=== PATIENT | male | born 1975 | race Caucasian/White ===

== ENCOUNTER 2021-09-23 13:51 | Emergency (ER) | payer SELFPAY ==
[2021-09-23 14:26] LABS: #Basophils 0.1 thou/uL (0.0-0.2); #Eosinphils 0.2 thou/uL (0.0-0.7); #Lymphocytes 2.3 thou/uL (1.20-3.40); #Monocytes 0.6 thou/uL (0.11-0.59); #Neutrophils 3.7 thou/uL (1.40-6.50); %Basophils 0.8 % (0.0-1.0); %Eosinophils 2.9 % (0.0-10.0); %Monocytes 8.2 % (0.0-10.0); %Neutrophils 54.1 % (42.0-75.0); Hemoglobin 17.3 g/dL (14.0-18.0); Mean Corpuscular HGB CONC 33.6 g/dL (32.0-36.0); Mean Corpuscular Hemoglobin 29.4 pg (27.0-31.0); Mean Corpuscular Volume 87.4 fL (78.0-98.0); Mean Platelet Volume 7.3 fL (7.4-10.4); Platelet Count 254 thou/uL (130-400); RBC Distribution Width 12.7 % (11.5-14.5); Red Blood Cell (RBC) Count 5.89 mill/uL (4.70-6.10); White Blood Cell (WBC) Count 6.9 thou/uL (4.8-10.8)
[2021-09-23 14:47] LABS: ALT (SGPT) 51 U/L (8-55); AST (SGOT) 23 U/L (5-34); Albumin 4.5 g/dL (3.5-5.0); Alkaline Phosphatase 50 U/L (40-110); Anion Gap 13 mmol/L (10-20); BUN (Urea Nitrogen) 10 mg/dL (8.9-20.6); Bilirubin, Total 0.8 mg/dL (0.2-1.2); Calc. Creatinine Clearance 0 mL/min (70-130); Calcium 9.9 mg/dL (7.8-10.44); Carbon Dioxide 24 mmol/L (22-29); Chloride 103 mmol/L (98-107); Globulin 2.9 g/dL (2.4-3.5); Glucose 100 mg/dL (70-105); Lipase 34 U/L (8-78); Potassium 4.2 mmol/L (3.5-5.1); Protein, Total 7.4 g/dL (6.0-8.3); Sodium 136 mmol/L (136-145)
[2021-09-23 16:58] LABS: Bilirubin Negative (Negative); Blood, Urine Negative (Negative); Clarity Clear (Clear); Glucose, Urine (Dipstick) Normal (Negative); Ketone, Urine Trace mg/dL (Negative); Leukocyte Negative Leu/uL (Negative); Nitrite Negative (Negative); Protein, Urine (Dipstick) Negative (Neg-Trace); Specific Gravity, Urine 1.024 (1.002-1.036); Urobilinogen Normal mg/dL (Less than 2)
== END 2021-09-23 18:43 | disposition home or self-care (01) ==
LOC: ERS 13:51
DX: R07.89 Other chest pain (principal); R00.2 Palpitations; I10 Essential (primary) hypertension; G40.909 Epilepsy, unspecified, not intractable, without status epilepticus; E03.9 Hypothyroidism, unspecified; Z79.899 Other long term (current) drug therapy
CPT/HCPCS: 36415; 71045; 80053; 81003; 83690; 84443; 84484; 85025; 93005; 94760

== ENCOUNTER 2021-12-13 22:09 | Inpatient (IN) | payer OTHER, SELFPAY ==
[~2021-12-13 22:09] MED LIST: Heparin 10,000 UNITS/ 10 ML VIAL ONE
[2021-12-13 22:25] LABS: #Basophils 0.1 thou/uL (0.0-0.2); #Eosinphils 0.3 thou/uL (0.0-0.7); #Lymphocytes 4.4 thou/uL (1.20-3.40); #Monocytes 0.9 thou/uL (0.11-0.59); #Neutrophils 3.6 thou/uL (1.40-6.50); %Basophils 0.7 % (0.0-1.0); %Eosinophils 2.8 % (0.0-10.0); %Lymphocytes 47.5 % (21.0-51.0); %Monocytes 9.6 % (0.0-10.0); %Neutrophils 39.3 % (42.0-75.0); Hemoglobin 15.2 g/dL (14.0-18.0); Mean Corpuscular HGB CONC 33.1 g/dL (32.0-36.0); Mean Corpuscular Hemoglobin 29.7 pg (27.0-31.0); Mean Corpuscular Volume 89.9 fL (78.0-98.0); Mean Platelet Volume 6.9 fL (7.4-10.4); Platelet Count 261 thou/uL (130-400); RBC Distribution Width 12.7 % (11.5-14.5); White Blood Cell (WBC) Count 9.2 thou/uL (4.8-10.8)
[2021-12-13 22:38] LABS: PTT 24.4 sec (22.9-36.1); Prothrombin Time 13.6 sec (12.0-14.7)
[2021-12-13 22:47] LABS: ALT (SGPT) 75 U/L (8-55); AST (SGOT) 41 U/L (5-34); Albumin 3.5 g/dL (3.5-5.0); Alkaline Phosphatase 61 U/L (40-110); Anion Gap 14 mmol/L (10-20); BUN (Urea Nitrogen) 12 mg/dL (8.9-20.6); Bilirubin, Total 0.2 mg/dL (0.2-1.2); CK (CPK) 82 U/L (30-200); Calc. Creatinine Clearance 0 mL/min (70-130); Calcium 8.2 mg/dL (7.8-10.44); Carbon Dioxide 21 mmol/L (22-29); Chloride 106 mmol/L (98-107); Globulin 2.3 g/dL (2.4-3.5); Glucose 136 mg/dL (70-105); Potassium 3.8 mmol/L (3.5-5.1); Protein, Total 5.8 g/dL (6.0-8.3); Sodium 137 mmol/L (136-145)
[2021-12-13] MEDS ORDERED: Atropine Sulfate 1 mg/10 ml Syringe ONE (22:50)
[2021-12-13] MEDS ORDERED: Heparin 10,000 UNITS/ 10 ML VIAL ONE (22:50)
[2021-12-13] MEDS ORDERED: Ondansetron PF 4 MG/2 ML Vial ONE (22:50)
[2021-12-13] MEDS ORDERED: Adenosine 6 MG/2 ML VIAL ONE (22:55)
[2021-12-13] MEDS ORDERED: Nitroglycerin 100MG/250ML BOT 250 ML ONE (22:56)
[2021-12-13] MEDS ORDERED: TICAGRELOR 90 MG TABLET ONE (23:17)
[2021-12-13] MEDS ORDERED: traMADol HCl 50 MG TAB PO PRN (23:58)
[2021-12-13] MEDS ORDERED: Milk Of Magnesia 30 ML UDCUP PO PRN (23:58)
[2021-12-13] MEDS ORDERED: Nitroglycerin 0.4 MG TAB (25 Tab Bottle) SL PRN (23:58)
[2021-12-13] MEDS ORDERED: Zolpidem Tartrate 5 MG TAB PO PRN (23:58)
[2021-12-13] MEDS ORDERED: Mag-Al 1200 mg/1200 mg/30 ML UDCUP PO PRN (23:58)
[2021-12-14] MEDS ORDERED: Sodium Chloride 0.9% 500 ML IV SCH
[2021-12-14] MEDS ORDERED: Morphine 4 MG/ML VIAL SLOW IVP PRN (00:03)
[2021-12-14 00:29] VITALS: BMI 39.9
[2021-12-14 02:18] LABS: CKMB 112.3 ng/mL (0-6.6)
[2021-12-14 02:18] LABS: Troponin I 20.841 ng/mL (< 0.028)
[2021-12-14 02:21] LABS: SARS-CoV-2 NAA Rapid Test Not Detected (NotDetected)
[2021-12-14 03:12] LABS: Thyroid Stimulating Hormone 0.6233 uIU/mL (0.35-4.94)
[2021-12-14 03:55] LABS: ALT (SGPT) 121 U/L (8-55); AST (SGOT) 160 U/L (5-34); Albumin 4.2 g/dL (3.5-5.0); Alkaline Phosphatase 61 U/L (40-110); Anion Gap 15 mmol/L (10-20); BUN (Urea Nitrogen) 11 mg/dL (8.9-20.6); Bilirubin, Total 0.5 mg/dL (0.2-1.2); Calc. Creatinine Clearance 207 mL/min (70-130); Calcium 9.1 mg/dL (7.8-10.44); Carbon Dioxide 20 mmol/L (22-29); Chloride 104 mmol/L (98-107); Globulin 2.5 g/dL (2.4-3.5); Glucose 123 mg/dL (70-105); Potassium 3.6 mmol/L (3.5-5.1); Protein, Total 6.7 g/dL (6.0-8.3); Sodium 135 mmol/L (136-145)
[2021-12-14] MEDS: Levothyroxine 175 MCG TAB PO SCH (05:13)
[2021-12-14 05:29] LABS: Triglycerides 160 mg/dL (Less than 150)
[2021-12-14 05:34] LABS: Cardiac Risk 6.3 (Less than 4.5); Cholesterol 221 mg/dl (< 200 Desired); HDL Cholesterol 35 mg/dL (>60 Neg Risk); LDL Cholesterol, Calculated 154 mg/dL
[2021-12-14 05:38] LABS: Free T4 (Free Thyroxine) 1.29 ng/dL (0.70-1.48)
[2021-12-14] MEDS ORDERED: Levothyroxine 150 MCG TAB PO SCH (06:00)
[2021-12-14 06:38] LABS: #Eosinphils 0.1 thou/uL (0.0-0.7); #Lymphocytes 1.5 thou/uL (1.20-3.40); #Monocytes 0.7 thou/uL (0.11-0.59); #Neutrophils 7.9 thou/uL (1.40-6.50); %Eosinophils 0.5 % (0.0-10.0); %Lymphocytes 14.9 % (21.0-51.0); %Monocytes 6.8 % (0.0-10.0); %Neutrophils 77.7 % (42.0-75.0); Hemoglobin 15.3 g/dL (14.0-18.0); Mean Corpuscular HGB CONC 32.8 g/dL (32.0-36.0); Mean Corpuscular Hemoglobin 29.1 pg (27.0-31.0); Mean Corpuscular Volume 88.7 fL (78.0-98.0); Mean Platelet Volume 7.2 fL (7.4-10.4); Platelet Count 240 thou/uL (130-400); RBC Distribution Width 12.8 % (11.5-14.5); Red Blood Cell (RBC) Count 5.25 mill/uL (4.70-6.10); White Blood Cell (WBC) Count 10.1 thou/uL (4.8-10.8)
[2021-12-14 07:00] LABS: Magnesium 1.9 mg/dL (1.6-2.6)
[2021-12-14 07:30] LABS: Troponin I 57.577 ng/mL (< 0.028)
[2021-12-14] MEDS: TICAGRELOR 90 MG TABLET PO SCH ×2 (09:05→20:43)
[2021-12-14] MEDS: Aspirin Chewable 81 MG TAB PO SCH (09:05)
[2021-12-14] MEDS ORDERED: Lisinopril 5 MG TAB PO SCH (17:00)
[2021-12-14] MEDS ORDERED: BENAZEPRIL 10 MG PO SCH (21:00)
[2021-12-14] MEDS ORDERED: Atorvastatin Calcium 40 MG TAB PO SCH (21:00)
[2021-12-15] MEDS: Levothyroxine 175 MCG TAB PO SCH (05:39)
[2021-12-15] MEDS: Aspirin Chewable 81 MG TAB PO SCH (08:47)
[2021-12-15] MEDS: TICAGRELOR 90 MG TABLET PO SCH (08:48)
[2021-12-15] MEDS: Carvedilol 3.125 MG TAB PO SCH ×2 (08:48→17:21)
[2021-12-15] MEDS ORDERED: FLU VACC QS2021-22(6MOS UP)/PF 60 MCG/0.5 ML SYRINGE IM ONE (09:00)
[2021-12-15] MEDS ORDERED: Lisinopril 5 MG TAB PO SCH (09:00)
[2021-12-15 15:24] VITALS: BP 107/61; TEMP 98.6
[2021-12-16] MEDS ORDERED: Fish Oil 1,000 MG CAP PO SCH (09:00)
== END 2021-12-15 19:15 | disposition home or self-care (01) | DRG 247 ==
LOC: ERS 22:09 → CCU 22:37 → CCL 22:56 → CCU 23:55 → 2NO 12-14 19:59
PROVIDERS: ADMIT Internal Medicine Cardiovascular Disease; ATTEND Internal Medicine Cardiovascular Disease
PROC: 027036Z Dilation of Coronary Artery, One Artery with Three Drug-eluting Intraluminal Devices, Percutaneous Approach (ICD-10-PCS; principal; 2021-12-13)
DX: I21.19 ST elevation (STEMI) myocardial infarction involving other coronary artery of inferior wall (principal); E03.9 Hypothyroidism, unspecified; I10 Essential (primary) hypertension; I25.10 Atherosclerotic heart disease of native coronary artery without angina pectoris; E78.5 Hyperlipidemia, unspecified; Z20.822 Contact with and (suspected) exposure to COVID-19
CPT/HCPCS: 36415; 71045; 80053; 80061; 82550; 82553; 83735; 83880; 84439; 84443; 84484; 85025; 85347; 85610; 85730; 86850; 86900; 86901; 93005; 93010; 93306; 93798; 96374; C1757; C1769; C1874; J0153; J0461; J1644; J2405; J7030; U0002